=== PATIENT | male | born 1965 | race Caucasian/White ===

== ENCOUNTER 2017-12-31 01:57 | Inpatient (IN) | payer SELFPAY ==
[~2017-12-31] VITALS: Ht 190.5 cm; Wt 124.7 kg
[2017-12-31 02:00] VITALS: BP 133/84
--- NOTE | 2017-12-31 02:03 | NUR ---
TO LOBBY A/W BED, LILLY HERNANDEZ NOTED
--- NOTE | 2017-12-31 02:47 | NUR ---
PT AMBULATED TO BED 1.
--- NOTE | 2017-12-31 02:48 | NUR ---
Note undone in EDM - 12/31/17 at 0410 by RA 52/M CAME IN W C/O JACKELINE LEG PAIN AND SWELLING X 10 DAYS. PT REPORTS HX OF CELLULITIS AND TREATMENT COURSE WAS DONE. BLE NOTED WITH NONPITTING EDEMA, -REDNESS. DENIES N/V/D, FEVER/CHILLS. PMH: HTN, COLON CA
--- NOTE | 2017-12-31 02:48 | NUR ---
PT TAKEN TO BED 4
--- NOTE | 2017-12-31 02:48 | NUR ---
52/M CAME IN W C/O JACKELINE LEG PAIN AND SWELLING X 10 DAYS. PT REPORTS HX OF CELLULITIS AND TREATMENT COURSE WAS DONE. BLE NOTED WITH +2 PITTING EDEMA, -REDNESS. DENIES N/V/D, FEVER/CHILLS. DENIES SOB/CP AT THIS TIME. PMH: HTN, COLON CA
--- NOTE | 2017-12-31 03:30 | NUR ---
Dr. Vizcarra evaluating patient at bedside.
[2017-12-31] MEDS ORDERED: MORPHINE SULFATE 4 MG/ML SYR IVP ONE (03:35)
[2017-12-31] MEDS ORDERED: FUROSEMIDE 40 MG/4 ML VIAL IVP ONE (03:50)
[2017-12-31 04:17] LABS: BASOPHILS # (AUTO) 0.1 K/uL (0.00-0.22); EOSINOPHILS # (AUTO) 0.3 K/uL (0-0.4); HEMATOCRIT 31.6 % (36-52); MONOCYTES # (AUTO) 0.8 K/uL (0.8-1.0); RED CELL DISTRIBUTION WIDTH 20.7 % (11.6-13.7)
[2017-12-31 04:26] LABS: BASOPHILS % (AUTO) 1.1 % (0.0-2.0); EOSINOPHILS % (AUTO) 3.8 % (0.0-4.0); HEMOGLOBIN 9.7 g/dL (12.0-18.0); LYMPHOCYTES % (AUTO) 25.3 % (20.5-51.1); MEAN CORPUSCULAR HEMOGLOBIN 22 pg (27-31); MEAN CORPUSCULAR HGB CONC 31 g/dL (33-37); MEAN CORPUSCULAR VOLUME 71.7 fL (80-94); MONOCYTES % (AUTO) 10.3 % (1.7-9.3); NEUTROPHILS # (AUTO) 4.6 K/uL (1.8-7.7); NEUTROPHILS % (AUTO) 59.5 % (42.2-75.2); PLATELET COUNT (AUTO) 312 K/uL (140-450); RED BLOOD CELL COUNT(AUTO) 4.42 MIL/uL (4.20-6.10); WHITE BLOOD COUNT (AUTO) 7.8 K/uL (4.8-10.8)
[2017-12-31 04:38] LABS: ANION GAP 12.6 (8-16); CARBON DIOXIDE 25.1 mmol/L (21-32); CREATININE 1.4 mg/dL (0.7-1.3); POTASSIUM 3.7 mmol/L (3.5-5.1)
[2017-12-31 04:44] LABS: ALBUMIN 3.4 g/dL (3.4-5.0); TOTAL BILIRUBIN 0.3 mg/dL (0.0-1.0)
[2017-12-31] MEDS ORDERED: ZOLPIDEM 5 MG TAB PO PRN (04:45)
[2017-12-31] MEDS ORDERED: DOCUSATE SODIUM 100 MG GELCAP PO PRN (04:45)
[2017-12-31] MEDS ORDERED: ONDANSETRON 4 MG/2 ML VIAL IM/IVP PRN (04:45)
[2017-12-31] MEDS ORDERED: HYDROcodone/APAP 7.5/325 MG 1 TAB PO PRN (04:45)
[2017-12-31] MEDS ORDERED: ACETAMINOPHEN 325 MG TAB PO PRN (04:45)
--- NOTE | 2017-12-31 04:52 | NUR ---
BED DELAY, PER CLIENT LIAISON LINDA, NO RN AVAILABLE TO RECEIVE PT AT THIS TIME.
[2017-12-31 05:14] LABS: PROTHROMBIN TIME 10.4 secs (10.8-13.4)
[2017-12-31 05:17] LABS: CHOL/HDL RATIO 3.6 (1-4.5); FREE T4 (FREE THYROXINE) 1.18 ng/dL (0.76-1.46); MAGNESIUM 1.9 mg/dL (1.8-2.4); PHOSPHORUS 3.8 mg/dL (2.5-4.9); THYROID STIMULATING HORMONE 1.54 uIU/mL (0.34-3.74)
--- NOTE | 2017-12-31 05:26 | NUR ---
Patient will be admitted to care of [facility]. Admited to TELE. Will go to room 112A. Belongings list completed. Report to BENEDICT OVERTON.
[2017-12-31 05:31] VITALS: BP 120/101
--- NOTE | 2017-12-31 05:31 | NUR ---
PT ARRIVED AT UNIT VIA GURNEY, PT AMBULATED TO BED, TOLERATED WELL NO DISTRESS NOTED, IV TO L HAND 20G PATENT, INTACT, PT ON ROOM AIR, NO SOB, ORIENT PT TO ROOM, CALL LIGHT AND PHONE, PT STATED UNDERSTANDING, MRSA SWAB TAKEN, INITIAL ASSESSMENT DONE, ALL SAFETY PRECAUTION MET, WILL CONTINUE TO MONITOR.
[2017-12-31] MEDS: NACL 0.9% 1,000 ML IV SCH (07:28)
--- NOTE | 2017-12-31 07:30 | NUR ---
ENDORSED PT TO DAY SHIFT NURSE BRYCE, BERT STABLE, NO DISTRESS NOTED, CALL LIGHT WITHIN REACH.
--- NOTE | 2017-12-31 07:33 | NUR ---
RECEIVED REPORT FROM NIGHT RN. PT RESTING IN BED. AAOX4. NO S/S OF ACUTE DISTRESS. PT DENIES PAIN. IV SITE PATENT AND INTACT. CALL LIGHT WITHIN REACH. SAFETY MEASURES ENSURED. WILL CONTINUE TO MONITOR.
[2017-12-31 08:00] VITALS: BP 141/86
--- NOTE | 2017-12-31 08:14 | NUR ---
PATIENT HAS BEEN SCREENED AND CATEGORIZED MODERATE NUTRITION RISK. PATIENT WILL BE SEEN WITHIN 3-5 DAYS OF ADMISSION. 01/02/18 01/04/[address]
[2017-12-31] MEDS ORDERED: FUROSEMIDE 40 MG/4 ML VIAL IVP SCH (09:00)
[2017-12-31] MEDS: CARVEDILOL 3.125 MG TAB PO SCH ×2 (09:12→21:40)
--- NOTE | 2017-12-31 09:22 | NUR ---
AM MEDS GIVEN WITH EDUCATION. PT VERBALIZED UNDERSTANDING. CALL LIGHT WITHIN REACH. SAFETY MEASURES ENSURED. WILL CONTINUE TO MONITOR.
--- NOTE | 2017-12-31 10:35 | NUR ---
PT SLEEPING IN BED. NO S/S OF ACUTE DISTRESS. WILL CONTINUE TO MONITOR.
[2017-12-31 12:00] VITALS: BP 141/103
--- NOTE | 2017-12-31 12:35 | NUR ---
faxed medical records request to [facility]
--- NOTE | 2017-12-31 13:48 | NUR ---
PT SLEEPING IN BED. NO S/S OF ACUTE DISTRESS. CALL LIGHT WITHIN REACH. SAFETY MEASURES ENSURED. WILL CONTINUE TO MONITOR.
[2017-12-31 15:54] VITALS: BP 141/93
--- NOTE | 2017-12-31 19:09 | NUR ---
ENDORSED PLAN OF CARE TO NIGHT RN.
--- NOTE | 2017-12-31 19:10 | NUR ---
RECEIVED BEDSIDE REPORT FROM DAY SHIFT NURSE BRYCE RN, PT STABLE, NO DISTRESS NOTED, PT SLEEPING, IV TO L H 20G RUNNING NS @ 10ML/HR, INFUSING WELL, PATENT, INTACT, PT ON ROOM AIR, NO SOB, INITIAL ASSESSMENT DONE, ALL SAFETY PRECAUTION MET, WILL CONTINUE TO MONITOR.
[2017-12-31 20:00] VITALS: BP 115/83
--- NOTE | 2017-12-31 21:43 | NUR ---
DUE MEDICATION ADMINISTERED, PT TOLERATED WELL, PT TALKING ON PHONE, NO DISTRESS NOTED, CALL LIGHT WITHIN REACH, WILL CONTINUE TO MONITOR.
--- NOTE | 2017-12-31 21:50 | NUR ---
PT STATED WANTING TO TALK TO , NOTIFIED DR. CHATTERJEE, STATED UNDERSTANDING, DR WENT TO PT BEDSIDE AND TALKED TO PT. PT RESTING, NO DISTRESS NOTED, CALL LIGHT WITHIN REACH, WILL CONTINUE TO MONITOR.
[2017-12-31 23:15] LABS: APPEARANCE,URINE CLEAR (CLEAR); BILIRUBIN,URINE NEGATIVE (NEGATIVE); BLOOD, URINE NEGATIVE (NEGATIVE); COLOR,URINE YELLOW (YELLOW); LEUKOCYTE ESTERASE ,URINE NEGATIVE (NEGATIVE); NITRITE, URINE NEGATIVE (NEGATIVE); UGLUCOSE NEGATIVE (NEGATIVE)
[2017-12-31 23:23] LABS: BARBITURATE, URINE NEG. ng/ml (NEG <=200); BENZODIAZEPINE, URINE NEG. ng/mL (NEG <=200); CANNABINOID, URINE NEG. ng/mL (NEG <=50); COCAINE, URINE NEG. ng/mL (NEG <=300); OPIATE, URINE NEG. ng/mL (NEG <=2000); PHENCYCLIDINE SCREEN,URINE NEG. ng/mL (NEG <=25)
--- NOTE | 2017-12-31 23:55 | NUR ---
CHECKED ON PT, PT RESTING, NO DISTRESS NOTED, V/S TAKEN, WNL, CALL LIGHT WITHIN REACH, WILL CONTINUE TO MONITOR.
[2018-01-01] VITALS: BP 120/75
[2018-01-01 00:12] VITALS: BP 115/83
--- NOTE | 2018-01-01 02:16 | NUR ---
PT SLEEPING, NO DISTRESS NOTED, CALL LIGHT WITHIN REACH, WILL CONTINUE TO MONITOR.
[2018-01-01 04:00] VITALS: BP 124/70
--- NOTE | 2018-01-01 04:10 | NUR ---
CHECKED ON PT, PT SLEEPING, EASY TO AROUSE, V/S TAKEN, WNL, NO DISTRESS NOTED, CALL LIGHT WITHIN REACH, WILL CONTINUE TO MONITOR.
[2018-01-01] MEDS: NACL 0.9% 1,000 ML IV SCH (04:12)
[2018-01-01 06:19] LABS: T4 (THYROXINE) 8.2 ug/dL (4.5-12.0)
--- NOTE | 2018-01-01 06:35 | NUR ---
CHECKED ON PT, PT SLEEPING, NO DISTRESS NOTED, CALL LIGHT WITHIN REACH, WILL CONTINUE TO MONITOR.
[2018-01-01 07:12] LABS: BASOPHILS % (AUTO) 0.6 % (0.0-2.0); EOSINOPHILS # (AUTO) 0.2 K/uL (0-0.4); EOSINOPHILS % (AUTO) 4.1 % (0.0-4.0); HEMOGLOBIN 10.6 g/dL (12.0-18.0); LYMPHOCYTES # (AUTO) 1.6 K/uL (2.0-11.5); MEAN CORPUSCULAR HEMOGLOBIN 22 pg (27-31); MEAN CORPUSCULAR HGB CONC 31 g/dL (33-37); MEAN CORPUSCULAR VOLUME 71.6 fL (80-94); MONOCYTES # (AUTO) 0.6 K/uL (0.8-1.0); MONOCYTES % (AUTO) 10.3 % (1.7-9.3); NEUTROPHILS # (AUTO) 3.6 K/uL (1.8-7.7); PLATELET COUNT (AUTO) 316 K/uL (140-450); RED BLOOD CELL COUNT(AUTO) 4.75 MIL/uL (4.20-6.10); RED CELL DISTRIBUTION WIDTH 20.6 % (11.6-13.7); WHITE BLOOD COUNT (AUTO) 6.1 K/uL (4.8-10.8)
--- NOTE | 2018-01-01 07:20 | NUR ---
ENDORSED PLAN OF CARE TO DAY SHIFT NURSE SHRUTI OVERTON, PT STABLE, NO DISTRESS NOTED, CALL LIGHT WITHIN REACH. Addendum: 01/01/18 at 0724 by Karyna Fabian RN NURSE HUGO OVERTON
--- NOTE | 2018-01-01 07:25 | NUR ---
RECEIVED REPORT FROM ARTIFICIAL FLOWERS STARCHER RN. PATIENT IS SLEEPING IN BED, AROUSABLE BY VOICE. AAO X4. SKIN IS INTACT. LUNGS CTA IN ALL [place]. HEART RHYTHM IS REGULAR. THERE IS BILATERAL LOWER EXTREMITY PITTING EDEMA. ON 1.5 L FLUID RESTRICTION. IV SITE PATENT AND ASYMPTOMATIC, RUNNING IVF PER MD ORDERS. PATIENT IS AMBULATORY. USES URINAL AT BEDSIDE. ALL SAFETY MEASURES ARE IN PLACE. WILL CONTINUE TO MONITOR.
[2018-01-01 07:27] LABS: ANION GAP 13.1 (8-16); CARBON DIOXIDE 26.5 mmol/L (21-32); CREATININE 1.4 mg/dL (0.7-1.3); POTASSIUM 3.6 mmol/L (3.5-5.1)
[2018-01-01 08:00] VITALS: BP 127/88
[2018-01-01] MEDS ORDERED: FUROSEMIDE 40 MG/4 ML VIAL IVP SCH (09:00)
[2018-01-01] MEDS: CARVEDILOL 3.125 MG TAB PO SCH (09:27)
[2018-01-01] MEDS ORDERED: FURO-570 PO (09:36)
[2018-01-01] MEDS ORDERED: LOVA20TA8 PO (09:36)
[2018-01-01] MEDS ORDERED: CARV3.12 PO (09:36)
[2018-01-01] MEDS ORDERED: LISI10TA11 PO (09:36)
--- NOTE | 2018-01-01 09:37 | NUR ---
SCHEDULED MEDICATIONS GIVEN AT THIS TIME PER MD ORDERS. PATIENT IS IN BED, WATCHING TV WITH FAMILY MEMBER AT BEDSIDE. NO COMPLAINTS OF PAIN OR DISCOMFORT. PATIENT INFORMED OF PLANS FOR DISCHARGE TODAY. WILL CONTINUE TO MONITOR.
[2018-01-01] MEDS ORDERED: ALBU-118 IH (09:50)
[2018-01-01] MEDS ORDERED: ASPI81CT89 PO (10:01)
[2018-01-01] MEDS ORDERED: ACET-8386 PO (10:41)
[2018-01-01 12:00] VITALS: BP 120/85
--- NOTE | 2018-01-01 12:10 | NUR ---
DISCHARGE PAPERWORK, INCLUDING INSTRUCTIONS TO FOLLOW UP WITH PCP AND NEW PRESCRIPTIONS, GIVEN TO PATIENT AND FAMILY MEMBER AT BEDSIDE. PATIENT VERBALIZED COMPLETE UNDERSTANDING OF ALL DISCHARGE INSTRUCTIONS. MEDICATION TEACHING GIVEN. PATIENT INSTRUCTED TO FOLLOW UP WITH [employer] AND ONCOLOGIST FOR COLON CA PER MD INSTRUCTIONS. ID BANDS REMOVED. IV CANNULA REMOVED WITH MINIMAL BLOOD LOSS AND LUMEN COMPLETELY INTACT. PATIENT IS DRESSED AND READY TO GO HOME VIA PRIVATE VEHICLE ACCOMPANIED BY FAMILY MEMBER.
--- NOTE | 2018-01-01 12:50 | NUR ---
PATIENT DISCHARGED FROM UNIT AND WILL GO HOME WITH FAMILY MEMBER VIA PRIVATE VEHICLE. PATIENT IS IN STABLE CONDITION.
== END 2018-01-01 12:50 | disposition home or self-care (01) | DRG 291 ==
LOC: MED 01:57 → MTU 04:43
PROVIDERS: ADMIT General Practice; ATTEND General Practice
DX: I11.0 Hypertensive heart disease with heart failure (principal); N17.0 Acute kidney failure with tubular necrosis; I50.43 Acute on chronic combined systolic (congestive) and diastolic (congestive) heart failure; F15.90 Other stimulant use, unspecified, uncomplicated; D64.9 Anemia, unspecified; Z88.0 Allergy status to penicillin; Z91.14 Patient's other noncompliance with medication regimen; E66.9 Obesity, unspecified; Z68.34 Body mass index [BMI] 34.0-34.9, adult; Z85.038 Personal history of other malignant neoplasm of large intestine; Z80.0 Family history of malignant neoplasm of digestive organs
CPT/HCPCS: 36415; 36600; 71045; 80048; 80053; 80305; 81003; 82150; 82803; 83036; 83690; 83735; 83880; 84100; 84436; 84439; 84443; 84479; 84484; 85025; 85610; 85730; 87040; 87081; 93005; 93925; 93970; 96374; 96375; 99285; J1644; J1940; J2270; J7030; Q0092

== ENCOUNTER 2018-02-26 22:00 | Emergency (ER) | payer MEDICAID ==
[~2018-02-26] VITALS: Ht 190.5 cm; Wt 113.4 kg
[~2018-02-26 22:00] MED LIST: ACET-8386 PO; ALBU-118 IH; ASPI81CT89 PO; CARV3.12 PO; FURO-570 PO; LISI10TA11 PO; LOVA20TA8 PO
[2018-02-26 22:05] VITALS: BP 146/100
--- NOTE | 2018-02-26 22:05 | NUR ---
TO BED #4 AMBULATORY, REPORT GIVEN TO KRISHAN RN
--- NOTE | 2018-02-26 22:10 | NUR ---
PATIENT IS A 52 Y/O MALE WHO PRESENTS TO THE ED C/O LEG PAIN. PT STATES THAT IT STARTED X5 DAYS AGO. PT REPORTS 6/10 ACHING BILATERAL LEG PAIN THAT DOES NOT RADIATE. NOTED NO TRAUMA OR OBVIOUS DEFORMITY. PMSC + IN BILATERAL LEGS. PT DENIES CP, SOB, N/V/D. PT AWAKE AND ALERT, RR EVEN/UNLABORED. PT REPOSITIONED FOR COMFORT, BED IN LOWEST POSITION. ER MD DR. AGUERO NOTIFIED. WILL CONTINUE TO MONITOR.
--- NOTE | 2018-02-26 22:11 | NUR ---
PATIENT REPORTS THAT HE WAS OUT OF MEDS X1 WEEK.
--- NOTE | 2018-02-26 23:15 | NUR ---
lab at bedside
[2018-02-26 23:23] LABS: BASOPHILS # (AUTO) 0.1 K/uL (0.00-0.22); BASOPHILS % (AUTO) 0.9 % (0.0-2.0); EOSINOPHILS # (AUTO) 0.4 K/uL (0-0.4); EOSINOPHILS % (AUTO) 5.2 % (0.0-4.0); HEMATOCRIT 36.4 % (36-52); HEMOGLOBIN 11.4 g/dL (12.0-18.0); LYMPHOCYTES # (AUTO) 1.9 K/uL (2.0-11.5); LYMPHOCYTES % (AUTO) 23.1 % (20.5-51.1); MEAN CORPUSCULAR HEMOGLOBIN 22 pg (27-31); MEAN CORPUSCULAR HGB CONC 31 g/dL (33-37); MEAN CORPUSCULAR VOLUME 70.2 fL (80-94); MONOCYTES # (AUTO) 0.6 K/uL (0.8-1.0); MONOCYTES % (AUTO) 7.9 % (1.7-9.3); NEUTROPHILS # (AUTO) 5.1 K/uL (1.8-7.7); NEUTROPHILS % (AUTO) 62.9 % (42.2-75.2); PLATELET COUNT (AUTO) 337 K/uL (140-450); RED BLOOD CELL COUNT(AUTO) 5.18 MIL/uL (4.20-6.10); RED CELL DISTRIBUTION WIDTH 17.7 % (11.6-13.7); WHITE BLOOD COUNT (AUTO) 8.2 K/uL (4.8-10.8)
[2018-02-26 23:42] LABS: ALBUMIN 3.6 g/dL (3.4-5.0); ANION GAP 11.8 (8-16); CARBON DIOXIDE 25.4 mmol/L (21-32); CREATININE 1.6 mg/dL (0.7-1.3); POTASSIUM 4.2 mmol/L (3.5-5.1); TOTAL BILIRUBIN 0.3 mg/dL (0.0-1.0)
[2018-02-26 23:43] LABS: PROTHROMBIN TIME 9.5 secs (10.8-13.4)
[2018-02-26 23:57] VITALS: BP 127/82
--- NOTE | 2018-02-26 23:57 | NUR ---
Patient discharged with v/s stable. Written and verbal after care instructions given and explained. Patient alert, oriented and verbalized understanding of instructions. Ambulatory with steady gait. All questions addressed prior to discharge. ID band removed. Patient advised to follow up with PMD. Rx of ROBAXIN given. Patient educated on indication of medication including possible reaction and side effects. Opportunity to ask questions provided and answered.
== END 2018-02-26 23:57 | disposition home or self-care (01) ==
LOC: MED 22:00
DX: R25.2 Cramp and spasm (principal); R94.31 Abnormal electrocardiogram [ECG] [EKG]; I11.0 Hypertensive heart disease with heart failure; I50.9 Heart failure, unspecified; Z88.1 Allergy status to other antibiotic agents; Z79.82 Long term (current) use of aspirin; Z79.899 Other long term (current) drug therapy
CPT/HCPCS: 36415; 71045; 80053; 83880; 85025; 85610; 85730; 93005; 99285; Q0092

== ENCOUNTER 2018-11-20 08:55 | Emergency (ER) | payer SELFPAY ==
[~2018-11-20] VITALS: Ht 190.5 cm; Wt 113.4 kg
[~2018-11-20 08:55] MED LIST changes: +ASPI-1718 PO; -ASPI81CT89 PO
--- NOTE | 2018-11-20 08:58 | NUR ---
Patient transferred to bed 4 via wheelchair by tech. RN evaluating patient at bedside.
--- NOTE | 2018-11-20 08:58 | NUR ---
Adriane cronin in [facility] - 11/20/18 at 0904 by [facility] Pt w/c assisted to bed 3.
[2018-11-20 09:00] VITALS: BP 154/111
--- NOTE | 2018-11-20 09:07 | NUR ---
Dr. Campos evaluating patient at bedside.
[2018-11-20] MEDS ORDERED: NEOMYCIN/POLYMYXIN/BACITRACIN 0.9 GM/1 PKT TP ONE ×3 (09:22→09:25)
[2018-11-20] MEDS ORDERED: LIDOCAINE 1% 500 MG/50 ML VIAL INJ ONE ×2 (09:22→09:25)
[2018-11-20] MEDS ORDERED: HYDROcodone/APAP 5/325 MG 1 TAB TAB PO ONE (09:25)
[2018-11-20] MEDS ORDERED: cefTRIAXone 1,000 MG in LIDOCAINE 1% ***ER ONLY *** 2.1 ML IM ONE (09:25)
[2018-11-20] MEDS ORDERED: cefTRIAXone 1,000 MG VIAL ONE (09:46)
[2018-11-20] MEDS ORDERED: LIDOCAINE MPF 1% - 5 mL VIAL 10 ML ONE ×2 (09:47→11:46)
--- NOTE | 2018-11-20 09:54 | NUR ---
SUTURE KIT SET UP AT BEDSIDE, DR. TOLEDO AWARE
--- NOTE | 2018-11-20 11:03 | NUR ---
PT RESTING IN BED, AWAITING SUTURES TO BE COMPLETED
--- NOTE | 2018-11-20 11:27 | NUR ---
Dr. Campos evaluating patient at bedside.
--- NOTE | 2018-11-20 12:10 | NUR ---
PT DECIDED TO RECEIVE THE TDAP VACCINE AFTERALL
[2018-11-20 12:39] VITALS: BP 151/101
--- NOTE | 2018-11-20 12:39 | NUR ---
Patient discharged with v/s stable. Written and verbal after care instructions given and explained. Patient alert, oriented and verbalized understanding of instructions. Ambulatory with steady gait. All questions addressed prior to discharge. ID band removed. Patient advised to follow up with PMD. Rx of TRAMADOL & KEFLEX given. Patient educated on indication of medication including possible reaction and side effects. Opportunity to ask questions provided and answered.
== END 2018-11-20 12:37 | disposition home or self-care (01) ==
LOC: MED 08:55
DX: S81.011A Laceration without foreign body, right knee, initial encounter (principal); I11.0 Hypertensive heart disease with heart failure; I50.9 Heart failure, unspecified; Z79.82 Long term (current) use of aspirin; Z79.899 Other long term (current) drug therapy; Z88.1 Allergy status to other antibiotic agents; Z85.038 Personal history of other malignant neoplasm of large intestine; W25.XXXA Contact with sharp glass, initial encounter; Y93.89 Activity, other specified; Y92.89 Other specified places as the place of occurrence of the external cause; Y99.8 Other external cause status
CPT/HCPCS: 12002; 73560; 90471; 90715; 96372; 99283; J0696; J2001; Q0092

== ENCOUNTER 2020-02-09 14:51 | Emergency (ER) | payer SELFPAY ==
[~2020-02-09] VITALS: Ht 193 cm; Wt 117.9 kg
[~2020-02-09 14:51] MED LIST changes: -ASPI-1718 PO; +ASPI-1822 PO
[2020-02-09 15:00] VITALS: BP 172/116
[2020-02-09] MEDS ORDERED: KETOROLAC 60 MG/2 ML VIAL IM ONE (15:35)
[2020-02-09] MEDS ORDERED: HYDROcodone/APAP 7.5/325 MG 1 TAB PO ONE (16:30)
[2020-02-09 17:16] VITALS: BP 151/98
== END 2020-02-09 17:16 | disposition home or self-care (01) ==
LOC: MED 14:51
DX: S16.1XXA Strain of muscle, fascia and tendon at neck level, initial encounter (principal); I10 Essential (primary) hypertension; I51.89 Other ill-defined heart diseases; Z85.9 Personal history of malignant neoplasm, unspecified; Z88.1 Allergy status to other antibiotic agents; Z79.899 Other long term (current) drug therapy; V89.2XXA Person injured in unspecified motor-vehicle accident, traffic, initial encounter; Y93.55 Activity, bike riding; Y92.89 Other specified places as the place of occurrence of the external cause; Y99.8 Other external cause status
CPT/HCPCS: 72125; 96372; 99284; J1885

== ENCOUNTER 2020-06-01 15:58 | Emergency (ER) | payer SELFPAY ==
[~2020-06-01] VITALS: Ht 182.9 cm; Wt 113.4 kg
[2020-06-01 16:20] VITALS: BP 145/93
--- NOTE | 2020-06-01 16:30 | NUR ---
CALLED PT IN THE LOBBY AND TENT. PT WAS NOT FOUND. WILL CALL HIM LATER.
[2020-06-01] MEDS ORDERED: LEVOFLOXACIN 500 MG/D5W PREMIX 100 ML IV ONE (16:35)
--- NOTE | 2020-06-01 16:45 | NUR ---
CALLED PT AGAIN IN THE LOBBY AND TENT. PATIENT LEFT WITHOUT BEING SEEN BY DR. ARROYO. NO FURTHER CARE PROVIDED FOR PATIENT. DR. ARROYO MADE AWARE.
== END 2020-06-01 16:45 | disposition left against medical advice (07) ==
LOC: MED 15:58
DX: R53.1 Weakness (principal); R53.83 Other fatigue; Z53.21 Procedure and treatment not carried out due to patient leaving prior to being seen by health care provider